=== PATIENT | female | born 1950 | race Caucasian/White ===

== ENCOUNTER 2017-02-06 06:20 | Day surgery (SDC) | payer MEDICARE, OTHER ==
[~2017-02-06] VITALS: Ht 160 cm; Wt 82.3 kg
[~2017-02-06 06:20] MED LIST: AMBIEN10 MG PO; CARAFATE1 G PO; CORTEF 5 MG TAB5 MG PO; EPIKLOR20 MEQ PO; FLEXERIL10 MG PO; FRESHKOTE EACH EYE; LASIX80 MG PO; MOBIC PO; NORCO 5/325 TAB1 TA1 PO; PRILOSEC20 MG PO; PROBIOTIC PO; REQUIP1 MG PO; REQUIP3 MG PO; VISTARIL25 MG PO; XANAX0.25 MG PO; ZOCOR40 MG
[2017-02-06 07:28] LABS: HEMATOCRIT 42.5 % (36.0-48.0); HEMOGLOBIN 13.9 g/dL (12-16); MCH 28.7 pg (26.0-34.0); MCHC 32.7 g/dL (31.0-37.0); MCV 87.6 fL (80.0-100.0); RBC 4.85 10x6/uL (4.00-5.40); RDW 13.6 % (11.5-14.5)
[2017-02-06] MEDS ORDERED: CORTEF 5 MG TAB5 MG PO (08:46)
[2017-02-06] MEDS ORDERED: K-DUR20 MEQ PO (08:47)
[2017-02-06] MEDS ORDERED: LASIX40 MG PO (08:48)
[2017-02-06] MEDS ORDERED: OMEPRAZOLE20 M1 (08:50)
[2017-02-06] MEDS ORDERED: VALIUM5 MG PO (08:52)
[2017-02-06] MEDS ORDERED: ZOLOFT50 MG PO (08:52)
[2017-02-06] MEDS ORDERED: SINEMET 25-1001 EACH PO (08:52)
[2017-02-06] MEDS ORDERED: ZOCOR40 MG PO (08:53)
[2017-02-06] MEDS ORDERED: MYRBETRIQ50 MG PO (08:53)
[2017-02-06] MEDS ORDERED: VITAMIN B-1000 MCG/M SQ (08:54)
[2017-02-06] MEDS ORDERED: ULTRAM50 MG PO (08:54)
[2017-02-06] MEDS ORDERED: BAYER CHEWABLE81 MG PO (08:55)
[2017-02-06] MEDS ORDERED: BISACODYL PO (08:56)
[2017-02-06] MEDS ORDERED: ZYRTEC10 MG PO (08:57)
[2017-02-06] MEDS ORDERED: FERROUS SULFAT325 MG PO (08:57)
[2017-02-06] MEDS ORDERED: ALENDRONATE SOD70 MG PO (08:58)
[2017-02-06] MEDS ORDERED: ESTRACE 0.0142.5 GM VG (08:58)
[2017-02-06] MEDS ORDERED: ABILIFY10 MG PO (09:00)
[2017-02-06 09:24] VITALS: BP 129/71; Ht 160 cm; Wt 82.3 kg
--- NOTE | 2017-02-06 09:31 | NUR ---
0931-DILATE ESOPHAGUS TO 16 YI WITH BALLOON.
--- NOTE | 2017-02-08 15:57 | OP ---
PATIENT NAME: MELISSA MCLAIN MEDICAL RECORD: [id number] :46 [facility] DATE: SURGEON: BRE MA DO DATE OF OPERATION: 02/06/2017 PROCEDURE: EGD with biopsies and esophageal balloon dilation. SCOPE: Olympus video gastroscope. MEDICATIONS: Propofol 170 mg IV per anesthesia. ESTIMATED BLOOD LOSS: Minimal. COMPLICATIONS: None. FINDINGS: Informed consent was given. The patient was made comfortable with the above medication. After reaching an adequate level of sedation by slow IV push, the patient was placed on her left side. The endoscope was then advanced under direct visualization through the mouth to the second portion of the duodenum. The upper, middle, and distal thirds of the esophagus appeared normal. At the GE junction, a Schatzki ring was identified. It was traverse without dilation. Just distal to the Schatzki ring, there was evidence of mild LA class A reflux induced esophagitis. The endoscope was advanced beyond this site into the stomach where a large, mixed paraesophageal and sliding type hiatal hernia was present. The length of the hernia measured approximately 5 cm, but it was just as wide as it was in length. The endoscope was advanced beyond the diaphragmatic hiatus to the antrum where there was some granularity and erythema consistent with gastritis. There were also some old scars, likely related to past ulcers. Random biopsies were taken and submitted for histology and to rule out H. pylori. The endoscope was advanced in the duodenum where the bulb and second portion of the duodenum appeared normal. Scope was then withdrawn back into the stomach where a 16-18 mm CRE dilating balloon was placed through the endoscope. The Schatzki ring near the GE junction was dilated up to 18 mm in maximum diameter successfully. The scope was then withdrawn from the patient. The patient tolerated the procedure well and there were no complications. IMPRESSION: 1. Reflux esophagitis grade A. 2. Schatzki ring at the GE junction, dilated to 18-mm. 3. Large, mixed paraesophageal and sliding hiatal hernia. 4. Erythema and granularity consistent with gastritis in the antrum and prepyloric region, biopsies taken. PLAN AND RECOMMENDATIONS: 1. Discharge home when recovery parameters are met. 2. Continue current diet. 3. Continue current medications. 4. Consider referral to surgeon regarding the large hiatal hernia. A referral will be made if the patient wishes to pursue this after discussing findings with her. 5. Consider referral to ENT for evaluation of dysphonia issues reported prior to procedure. I attempted to evaluate the vocal cords on this examination, but could not give a direct visualization. There did appear to possibly be some asymmetry within the anatomy that may or may not be contributing to her OPERATIVE REPORT [id number] MELISSA MCLAIN symptoms. 6. Repeat EGD as needed for dysphagia or other symptoms. 7. Follow up in GI clinic as needed. TRANSINT:[id number] Voice Confirmation ID: [id number] DOCUMENT ID: [id number] BRE MA DO at 1557 CC: [id number] DICTATION DATE: 02/06/17940 DIRECTOR GLOBAL DEVELOPMENT: 02/06/17 1844 [facility] 02/06/17 [facility] [address] [place] [address]
== END 2017-02-06 11:00 | disposition home or self-care (01) ==
LOC: D.OPS 06:20
PROVIDERS: Anesthesiology
DX: R13.10 Dysphagia, unspecified (principal); K22.2 Esophageal obstruction; K44.9 Diaphragmatic hernia without obstruction or gangrene; K21.0 Gastro-esophageal reflux disease with esophagitis; I10 Essential (primary) hypertension; M19.90 Unspecified osteoarthritis, unspecified site; Z01.812 Encounter for preprocedural laboratory examination

== ENCOUNTER 2017-12-25 07:01 | Day surgery (SDC) | payer MEDICARE, OTHER ==
[~2017-12-25] VITALS: Ht 160 cm; Wt 86.8 kg
--- NOTE | ~2017-12-25 | OP ---
PATIENT NAME: MELISSA MCLAIN MEDICAL RECORD: [id number] :46 LOCATION:[facility] ADMISSION DATE: SURGEON: BRE MA DO DATE OF OPERATION: 12/25/2017 PROCEDURE: Colonoscopy with polypectomy. INDICATIONS FOR PROCEDURE: Personal history of colon polyps and family history of colon cancer. Her last colonoscopy was on 10/30/2012. SCOPE: Olympus video pediatric colonoscope. MEDICATIONS: Propofol 400 mg IV per anesthesia. WITHDRAWAL TIME: 12 minutes. ESTIMATED BLOOD LOSS: Minimal. COMPLICATIONS: None. FINDINGS: Informed consent was given. The patient was made comfortable with the above medication. After reaching an adequate level of sedation by slow IV push, the patient was placed on her left side. The colonoscope was then advanced under direct visualization through the rectum to the cecum with visualization of the appendiceal orifice and ileocecal valve. Scope was slowly withdrawn and mucosa was carefully examined. The prep quality was fair. There was evidence of mild diverticulosis in the sigmoid colon without diverticulitis. There was a single polyp located on today's examination in the ascending colon. It was a benign appearing polyp, which was sessile and measured approximately 3 mm in diameter. It was removed using hot forceps. The polypectomy site continued to bleed some after removal of the polyp while being monitored. For hemostasis and safety measures, a single endoclip was placed over the site to prevent further complications after discharge home. There were no other polyps on today's examination. Retroflexion was performed in the rectum with a normal appearing rectal wall. The endoscope was withdrawn from the patient. The patient tolerated the procedure well and there were no complications. IMPRESSION: 1. Single polyp located in the ascending colon, removed with hot forceps and the subsequent endoclip was placed for hemostasis measures. 2. Mild diverticulosis of the sigmoid colon without diverticulitis. PLAN AND RECOMMENDATIONS: 1. Discharge home when recovery parameters are met. 2. Continue current medications. 3. High fiber diet. 4. Recall colonoscopy in 3 or 5 years based on personal history of polyps and a family history of colon cancer. TRANSINT:[id number] Voice Confirmation ID: [id number] DOCUMENT ID: [id number] OPERATIVE REPORT [id number] MELISSA MCLAIN BRE MA DO at 1524 CC: [id number] DICTATION DATE: 12/25/17914 FRUIT OR NUT FARMER: 12/25/17 1228 [facility] 12/25/17 [facility] [address] [place] [address]
[~2017-12-25 07:01] MED LIST changes: +ABILIFY10 MG PO; +ALENDRONATE SOD70 MG PO; +BAYER CHEWABLE81 MG PO; +BISACODYL PO; +ESTRACE 0.0142.5 GM VG; +FERROUS SULFAT325 MG PO; +K-DUR20 MEQ PO; +LASIX40 MG PO; +MYRBETRIQ50 MG PO; +OMEPRAZOLE20 M1; +SINEMET 25-1001 EACH PO; +ULTRAM50 MG PO; +VALIUM5 MG PO; +VITAMIN B-1000 MCG/M SQ; +ZOCOR40 MG PO; +ZOLOFT50 MG PO; +ZYRTEC10 MG PO
[2017-12-25] MEDS ORDERED: ALDACTONE25 MG PO (08:04)
[2017-12-25 08:07] LABS: HEMATOCRIT 44.5 % (36.0-48.0); HEMOGLOBIN 14.5 g/dL (12-16); MCH 29.8 pg (26.0-34.0); MCHC 32.6 g/dL (31.0-37.0); MCV 91.6 fL (80.0-100.0); RBC 4.86 10x6/uL (4.00-5.40); RDW 13.7 % (11.5-14.5); WBC 6.3 10x3/uL (4.8-10.8)
[2017-12-25 08:15] VITALS: BP 137/71; Ht 160 cm; Wt 86.8 kg
== END 2017-12-25 10:07 | disposition home or self-care (01) ==
LOC: D.OPS 07:01
PROVIDERS: Anesthesiology
DX: D12.2 Benign neoplasm of ascending colon (principal); Z80.0 Family history of malignant neoplasm of digestive organs; Z01.812 Encounter for preprocedural laboratory examination

== ENCOUNTER → 2018-01-01 12:24 | Outpatient (CLI) | payer MEDICARE, OTHER ==
[2017-12-25 08:15] VITALS: BMI 33.9
[~2018-01-01 12:24] MED LIST changes: +ALDACTONE25 MG PO
== END | disposition home or self-care (01) ==
LOC: D.RAD 12:24
DX: R13.12 Dysphagia, oropharyngeal phase (principal)